=== PATIENT | female | born 1970 | race Caucasian/White ===

== ENCOUNTER 2017-11-04 13:22 | Emergency (ER) | payer OTHER ==
[2017-11-04 14:57] VITALS: BP 135/84
--- NOTE | 2017-11-04 15:25 | UC ---
Throat Pain/Nasal Jeevan HPI - HPI Summary HPI Summary: This is a 47 yo female with allergic rhinitis who presents with c/o increased sinus congestion and R sided facial pain over the last week. No associated fevers. Some ST and mild cough. Mild nausea, no vomiting or diarrhea. - History of Current Complaint Chief Complaint: UCRespiratory Stated Complaint: SINUS COMPLAINT Pain Intensity: 3 Pain Scale Used: 0-10 Numeric - Allergies/Home Medications Allergies/Adverse Reactions: Allergies Allergy/AdvReac Type Severity Reaction Status Date / Time ciprofloxacin [From Cipro] Allergy Hives Verified 11/04/17 14:57 codeine Allergy Rash And Verified 11/04/17 14:57 Itching Home Medications: Home Medications Fexofenadine/Pseudoephedrine [Alma Delia-D 24 Hour Tablet] 1 each PO 11/04/17 [ History] Loratadine [Claritin] 10 mg PO 11/04/17 [History] PMH/Surg Hx/FS Hx/Imm Hx Previously Healthy: Yes - Surgical History Surgical History: Yes Surgery Procedure, Year, and Place: [place]OMY 2003 [place]. SINUS SURGERY 2009 [facility] – [place]. WISDOM TEETH REMOVAL [place] - Family History Known Family History: Positive: None - Social History Alcohol Use: Rare Alcohol Amount: 1-2/WEEK Substance Use Type: None Smoking Status (MU): Never Smoked Tobacco Review of Systems Constitutional: Fatigue Skin: Negative Eyes: Negative ENT: Sore Throat, Sinus Congestion, Sinus Pain/Tenderness Respiratory: Cough Cardiovascular: Negative Gastrointestinal: Negative Genitourinary: Negative Motor: Negative Neurovascular: Negative Musculoskeletal: Negative Neurological: Negative Psychological: Negative Is Patient Immunocompromised?: No All Other Systems Reviewed And Are Negative: Yes Physical Exam Triage Information Reviewed: Yes Appearance: Well-Appearing Vital Signs: Initial Vital Signs Temp 98.1 F 11/04/17 14:54 Pulse 84 11/04/17 14:54 Resp 18 11/04/17 14:54 BP 135/84 11/04/17 14:54 Pulse Ox 100 11/04/17 14:54 Vital Signs Reviewed: Yes ENT: Positive: Pharynx normal, Other - serous effusion bilaterally Dental: Positive: Other: - R maxillary and frontal sinuses TTP Neck: Positive: Supple, Nontender, No Lymphadenopathy Respiratory: Positive: Lungs clear, Normal breath sounds. Negative: Crackles, Rhonchi, Wheezing Cardiovascular: Positive: RRR, No Murmur Abdominal Exam: Normal Neurological Exam: Normal Psychological Exam: Normal Skin Exam: Normal Throat Pain/Nasal Course/Dx - Course Course Of Treatment: 47 yo female with allergic rhinitis who presents with worsening congestion and R sided facial pain. Treat for bacterial sinusitis with 7d Augmentin. - Differential Dx/Diagnosis Differential Diagnosis/HQI/PQRI: Laryngitis, Pharyngitis, Sinusitis Provider Diagnoses: Sinusitis Discharge - Sign-Out/Discharge Documenting (check all that apply): Discharge/Admit/Transfer - Discharge Plan Condition: Stable Disposition: HOME Prescriptions: Amoxicillin/Clavulanate TAB* [Augmentin TAB 875*] 875 mg PO BID #14 tab Patient Education Materials: Sinusitis (ED) Referrals: Kenia West MD [Primary Care Provider] - If Needed Additional Instructions: Instructions: 1. Take antibiotics as directed 2. Cont usual allergy medications - Billing Disposition and Condition Condition: STABLE Disposition: HOME
== END 2017-11-04 15:15 | disposition home or self-care (01) ==
LOC: UCEAST 13:22
DX: J32.9 Chronic sinusitis, unspecified (principal); Z88.1 Allergy status to other antibiotic agents; Z88.5 Allergy status to narcotic agent
CPT/HCPCS: 99212; G0463

== ENCOUNTER 2018-12-14 17:35 | Emergency (ER) | payer BC, OTHER ==
[2018-12-14 17:43] VITALS: BP 137/85
--- NOTE | 2018-12-14 17:43 | UC ---
Throat Pain/Nasal Jeevan HPI - HPI Summary HPI Summary: 48 yo female presents with a sore throat for the last 2 days. She tells me that she has felt feverish at times and temp has been up to 100F. She has been taking ibuprofen OTC with mild relief. She is tolerating po well and is able to eat and drink without difficulty. She mentions that she has chronic sinusitis and allergies, but this feels more than that. She denies sinus symptoms, cough, rash. - History of Current Complaint Stated Complaint: SORE THROAT Time Seen by Provider: 12/14/18 17:38 Hx Obtained From: Patient Hx Last Menstrual Period: doesn't get regularly - had uterine ablasion Onset/Duration: Gradual Onset Severity: Mild Pain Intensity: 3 Pain Scale Used: 0-10 Numeric - Allergies/Home Medications Allergies/Adverse Reactions: Allergies Allergy/AdvReac Type Severity Reaction Status Date / Time ciprofloxacin [From Cipro] Allergy Hives Verified 12/14/18 17:43 codeine Allergy Rash And Verified 12/14/18 17:43 Itching Home Medications: Home Medications Acetaminophen [Pain Relief Extra Strength] 1,000 mg PO PRN 12/14/18 [History] Magnesium 12/14/18 [History] PMH/Surg Hx/FS Hx/Imm Hx Neurological History: Migraine - Surgical History Surgical History: Yes Surgery Procedure, Year, and Place: MYOMECTOMY 2003 [place]. [place] 2000 [place]. [place] [facility] [place] WISDOM TEETH REMOVAL [place]. uterine ablasion for polyps, uterine fibroid surgery - Family History Known Family History: Positive: None - Social History Occupation: Employed Full-time Lives: With Family Alcohol Use: Rare Alcohol Amount: 1-2/WEEK Substance Use Type: None Smoking Status (MU): Never Smoked Tobacco Review of Systems All Other Systems Reviewed And Are Negative: Yes Constitutional: Positive: Negative Skin: Positive: Negative Eyes: Positive: Negative ENT: Positive: Sore Throat Respiratory: Positive: Negative Cardiovascular: Positive: Negative Gastrointestinal: Positive: Negative Neurovascular: Positive: Negative Neurological: Positive: Negative Psychological: Positive: Negative Physical Exam - Summary Physical Exam Summary: GENERAL: NAD. WDWN. No pain distress. SKIN: No rashes, sores, lesions, or open wounds. HEENT: Head: AT/NC Eyes: Conjunctiva clear without inflammation or discharge. Ears: Hearing grossly normal. TMs intact, no bulging, erythema, or edema. Nose: Nasal mucosa pink and moist. NTTP maxillary and frontal sinus. Throat: Posterior oropharynx mild erythema and 2+ tonsillar enlargement. No exudates. Uvula midline. No hoarse voice or muffled voice. NECK: Supple. Nontender. No lymphadenopathy. CHEST: CTAB. No r/r/w. No accessory muscle use. Breathing comfortably and in no distress. CV: RRR. Without m/r/g. Pulses intact. Cap refill <2seconds NEURO: Alert. PSYCH: Age appropriate behavior. Triage Information Reviewed: Yes Vital Signs: Vital Signs: Temp Pulse Resp BP Pulse Ox 98.4 F 86 16 137/85 97 12/14/18 17:37 12/14/18 17:37 12/14/18 17:37 12/14/18 17:37 12/14/18 17:37 Vital Signs Reviewed: Yes Throat Pain/Nasal Course/Dx - Course Course Of Treatment: POC strep negative. Discussed viral vs bacterial causes. Pt prefers to be on antibiotics at this time. - Differential Dx/Diagnosis Provider Diagnosis: Pharyngitis Discharge - Sign-Out/Discharge Documenting (check all that apply): Patient Departure All imaging exams completed and their final reports reviewed: No Studies - Discharge Plan Condition: Stable Disposition: HOME Prescriptions: Amoxicillin PO (*) [Amoxicillin 875 MG (*)] 875 mg PO BID #14 tab Patient Education Materials: Pharyngitis (ED) Referrals: No Primary Care Phys,NOPCP [Primary Care Provider] - Additional Instructions: If you develop a fever, shortness of breath, chest pain, new or worsening symptoms - please call your PCP or go to the ED immediately. Your blood pressure was high at todays visit. Please see your primary provider within 4 weeks for recheck and re-evaluation. - Billing Disposition and Condition Condition: STABLE Disposition: Home
[2018-12-14] MEDS ORDERED: Amoxicillin PO (*) 500 MG CAP PO ONE (17:52)
== END 2018-12-14 18:04 | disposition home or self-care (01) ==
LOC: UCEAST 17:35
DX: J02.9 Acute pharyngitis, unspecified (principal); Z88.5 Allergy status to narcotic agent
CPT/HCPCS: 87651; 99212; A9270-GY; G0463

== ENCOUNTER 2019-01-26 15:54 | Emergency (ER) | payer BC ==
[2019-01-26 16:47] VITALS: BP 131/88
--- NOTE | 2019-01-26 17:12 | UC ---
Lower Extremity/Ankle HPI - HPI Summary HPI Summary: 6 weeks of let heel and foot pain worse in the morning ---hs been wearing flip- lops that make the pain worse - History of Current Complaint Chief Complaint: UCLowerExtremity Stated Complaint: L FOOT PAIN Time Seen by Provider: 01/26/19 16:55 Hx Obtained From: Patient Hx Last Menstrual Period: doesn't get regularly - had uterine ablasion ?: No Onset/Duration: Lasting Weeks - 6, Still Present Pain Intensity: 2 Pain Scale Used: 0-10 Numeric Aggravating Factor(s): Standing, Ambulation Alleviating Factor(s): Nothing Able to Bear Weight: Yes - Allergies/Home Medications Allergies/Adverse Reactions: Allergies Allergy/AdvReac Type Severity Reaction Status Date / Time ciprofloxacin [From Cipro] Allergy Hives Verified 01/26/19 16:47 codeine Allergy Rash And Verified 01/26/19 16:47 Itching PMH/Surg Hx/FS Hx/Imm Hx Previously Healthy: No Neurological History: Migraine - Surgical History Surgical History: Yes Surgery Procedure, Year, and Place: MYOMECTOMY 2003 [place]. [place] 2000 [place]. SINUS SURGERY 2009 [facility] [place]. WISDOM TEETH REMOVAL [place]. uterine ablasion for polyps, uterine fibroid surgery - Family History Known Family History: Positive: None - Social History Occupation: Employed Part-time Lives: With Family Alcohol Use: Weekly Alcohol Amount: 1-2/WEEK Substance Use Type: None Smoking Status (MU): Never Smoked Tobacco Review of Systems All Other Systems Reviewed And Are Negative: Yes Constitutional: Positive: Negative Skin: Positive: Negative Eyes: Positive: Negative ENT: Positive: Negative Respiratory: Positive: Negative Cardiovascular: Positive: Negative Gastrointestinal: Positive: Negative Genitourinary: Positive: Negative Motor: Positive: Negative Neurovascular: Positive: Negative Musculoskeletal: Positive: Arthralgia - left foot/heel Neurological: Positive: Negative Psychological: Positive: Negative Is Patient Immunocompromised?: Yes Physical Exam Triage Information Reviewed: Yes Appearance: Well-Appearing, No Pain Distress, Well-Nourished Vital Signs: Initial Vital Signs Temp 99.5 F 01/26/19 16:44 Pulse 89 01/26/19 16:44 Resp 18 01/26/19 16:44 BP 131/88 01/26/19 16:44 Pulse Ox 100 01/26/19 16:44 Vital Signs Reviewed: Yes Eye Exam: Normal Eyes: Positive: Conjunctiva Clear ENT Exam: Normal ENT: Positive: Normal ENT inspection, Hearing grossly normal. Negative: Nasal congestion, Trismus, Muffled voice, Hoarse voice Dental Exam: Normal Neck exam: Normal Neck: Positive: Supple, Nontender, No Lymphadenopathy Respiratory Exam: Normal Respiratory: Positive: Chest non-tender, Lungs clear, Normal breath sounds, No respiratory distress, No accessory muscle use Cardiovascular Exam: Normal Cardiovascular: Positive: RRR, No Murmur, Pulses Normal, Brisk Capillary Refill Musculoskeletal Exam: Normal Musculoskeletal: Positive: Strength Intact, ROM Intact, No Edema Neurological Exam: Normal Neurological: Positive: Alert, Muscle Tone Normal Psychological Exam: Normal Skin Exam: Normal Diagnostics - Radiology No standard instances Radiology Interpretation Completed By: Radiologist - no evidence of fracture- smll osteophyte Lower Extremity Course/Dx - Course Course Of Treatment: cam boot, ibuprofen , plantar exercises, follow with poditry prn - Differential Dx/Diagnosis Provider Diagnosis: Plantar fasciitis of left foot Discharge - Sign-Out/Discharge Documenting (check all that apply): Patient Departure All imaging exams completed and their final reports reviewed: Yes - Discharge Plan Condition: Stable Disposition: HOME Patient Education Materials: Ibuprofen (By mouth), Plantar Fasciitis Exercises (GEN), Plantar Fasciitis (ED) Referrals: Junito Jones DPM [Doctor of Podiatric Medicine] - Lorena Stoll DPM [Doctor of Podiatric Medicine] - Crow Hale DPM [Doctor of Podiatric Medicine] - - Billing Disposition and Condition Condition: STABLE Disposition: Home - Attestation Statements Provider Attestation: I was available for consult. This patient was seen by the [facility]. The patient was not presented to, seen by, or examined by me. -Junaid
== END 2019-01-26 18:02 | disposition home or self-care (01) ==
LOC: UCEAST 15:54
DX: M72.2 Plantar fascial fibromatosis (principal)
CPT/HCPCS: 99212; G0463